=== PATIENT | male | born 1970 | race Caucasian/White ===

== ENCOUNTER 2020-12-24 08:17 | Outpatient (REF) | payer OTHER, SELFPAY ==
[2020-12-24 11:38] LABS: Estimated Average Glucose 157 mg/dL; Hemoglobin A1c % 7.1 %
== END 2020-12-24 08:18 | disposition home or self-care (01) ==
LOC: HO.MANLDS 08:17
PROVIDERS: PCP Internal Medicine; Visit Provider Internal Medicine
DX: E11.9 Type 2 diabetes mellitus without complications (principal)
CPT/HCPCS: 36415; 83036

== ENCOUNTER 2022-03-18 07:46 | Outpatient (REF) | payer OTHER, SELFPAY ==
[2022-03-18 11:29] LABS: Estimated Average Glucose 214 mg/dL; Hemoglobin A1c % 9.1 %
== END 2022-03-18 07:47 | disposition home or self-care (01) ==
LOC: HO.MANLDS 07:46
PROVIDERS: Visit Provider Internal Medicine
DX: E11.9 Type 2 diabetes mellitus without complications (principal)
CPT/HCPCS: 36415; 83036

== ENCOUNTER 2022-09-01 07:58 | Outpatient (REF) | payer OTHER, SELFPAY ==
[2022-09-01 11:31] LABS: MANUAL DIFF FLAG NO
[2022-09-01 11:58] LABS: Basophils Percent Auto 0.3 % (0-2); Eosinophils Absolute Auto 0.3 X10*3/uL (0.0-0.4); Eosinophils Percent Auto 2.9 % (0-4); Hematocrit 49.6 % (42.0-52.0); Hemoglobin 16.9 g/dl (14.0-18.0); Imm Gran Abs Auto 0.03 X10*3/uL (0.00-0.03); Imm Gran Pct Auto 0.3 % (0.0-0.4); Lymphocytes Absolute Auto 2.4 X10*3/uL (1.2-4.9); Lymphocytes Percent Auto 27.3 % (20-40); Mean Corpuscular HGB Conc 34.1 g/dl (31.0-36.0); Mean Corpuscular Hemoglobin 30.9 pg (27.0-33.0); Mean Corpuscular Volume 90.7 fL (80.0-98.0); Mean Platelet Volume 11.3 fL (9.4-12.4); Monocytes Absolute Auto 0.9 X10*3/uL (0.1-1.2); Monocytes Percent Auto 10.5 % (2-11); Neutrophils Absolute Auto 5.1 x10*3/uL (2.0-8.3); Neutrophils Percent Auto 58.7 % (45-73); Platelet Count 215 X10*3/uL (160-400); Red Blood Count 5.47 X10*6/uL (4.60-5.80); Red Cell Distribution Width 12.2 % (11.0-16.0); White Blood Count 8.7 X10*3/uL (4.8-10.8)
[2022-09-01 12:13] LABS: Estimated Average Glucose 286 mg/dL; Hemoglobin A1c % 11.6 %
[2022-09-01 13:14] LABS: Creatinine Urine 63.03 mg/dL; Microalbum/Creatinine Ratio Ur 174.5 ug/mg cr
[2022-09-01 15:09] LABS: Alanine Aminotransferase 48 U/L (0-40); Albumin Level 4.2 g/dL (3.5-5.0); Alkaline Phosphatase 88 U/L (39-117); Anion Gap 14 (12-20); Aspartate Amino Transferase 33 U/L (5-37); Bilirubin Total 0.5 mg/dL (0.0-1.0); Blood Urea Nitrogen 11 mg/dL (9-16); Carbon Dioxide 26 mmol/L (22-29); Chloride 104 mmol/L (96-108); Cholesterol 185 mg/dL; Estimated Glomerular Filt Rate > 60; Glucose Fasting 312 mg/dL (60-99); HDL Cholesterol 40 mg/dL; LDL Cholesterol Calculated 93 mg/dl; Potassium 4.3 mmol/L (3.3-5.1); Sodium 140 mmol/L (135-145); Total Protein 7.1 g/dL (6.5-8.0); Triglycerides 261 mg/dL
[2022-09-01 15:19] LABS: Prostate Specific Antigen 0.58 ng/mL (<0.05-4.0)
== END 2022-09-01 07:59 | disposition home or self-care (01) ==
LOC: HO.MANLDS 07:58
PROVIDERS: Visit Provider Internal Medicine
DX: Z12.5 Encounter for screening for malignant neoplasm of prostate (principal); E78.00 Pure hypercholesterolemia, unspecified; E11.65 Type 2 diabetes mellitus with hyperglycemia
CPT/HCPCS: 36415; 80053; 80061; 82043; 83036; 84153; 85025

== ENCOUNTER 2023-01-01 10:09 | Outpatient (REF) | payer OTHER, SELFPAY ==
[2023-01-01 14:04] LABS: Estimated Average Glucose 240 mg/dL
[2023-01-01 14:07] LABS: Alanine Aminotransferase 46 U/L (0-40); Alkaline Phosphatase 75 U/L (39-117); Anion Gap 18 (12-20); Aspartate Amino Transferase 36 U/L (5-37); Bilirubin Total 0.5 mg/dL (0.0-1.0); Blood Urea Nitrogen 11 mg/dL (9-16); Calcium 9.2 mg/dL (8.4-10.2); Carbon Dioxide 21 mmol/L (22-29); Chloride 103 mmol/L (96-108); Cholesterol 160 mg/dL; Estimated Glomerular Filt Rate > 60; Glucose Random 282 mg/dL (60-115); HDL Cholesterol 38 mg/dL; LDL Cholesterol Calculated 81 mg/dl; Potassium 4.1 mmol/L (3.3-5.1); Sodium 138 mmol/L (135-145); Triglycerides 206 mg/dL
[2023-01-01 14:44] LABS: Creatinine Urine 194.35 mg/dL; Microalbum/Creatinine Ratio Ur 86.4 ug/mg cr
== END 2023-01-01 10:10 | disposition home or self-care (01) ==
LOC: HO.MANLDS 10:09
PROVIDERS: Visit Provider Internal Medicine
DX: E11.65 Type 2 diabetes mellitus with hyperglycemia (principal)
CPT/HCPCS: 36415; 80053; 80061; 82043; 83036

== ENCOUNTER 2023-04-19 08:20 | Outpatient (REF) | payer OTHER, SELFPAY ==
[2023-04-19 13:51] LABS: Estimated Average Glucose 200 mg/dL; Hemoglobin A1c % 8.6 % (<6.0)
== END 2023-04-19 08:21 | disposition home or self-care (01) ==
LOC: HO.MANLDS 08:20
PROVIDERS: Visit Provider Internal Medicine
DX: E11.9 Type 2 diabetes mellitus without complications (principal)
CPT/HCPCS: 36415; 83036

== ENCOUNTER 2023-07-05 08:18 | Outpatient (REF) | payer OTHER, SELFPAY ==
[2023-07-05 13:42] LABS: Estimated Average Glucose 143 mg/dL; Hemoglobin A1c % 6.6 % (<6.0)
== END 2023-07-05 08:19 | disposition home or self-care (01) ==
LOC: HO.MANLDS 08:18
PROVIDERS: Visit Provider Internal Medicine
DX: E11.65 Type 2 diabetes mellitus with hyperglycemia (principal)
CPT/HCPCS: 36415; 83036

== ENCOUNTER 2024-12-27 09:49 | Outpatient (REF) | payer OTHER, SELFPAY ==
--- OUTSIDE RECORDS SUMMARY | 2024-12-27 10:26 | XMS_ITS | Encounter Summary ---
Author Organization [facility] Address [address] [place] [address] Phone Care Team Providers Care Senior Solutions Engineer Name Role Phone Anhtony Jeffery DO Primary Care Provider [phone] Encounter Details Date Type Department Care Team (Late st Contact Info) Description 06/09/2017 Ancillary Orders Virtual Department [address] [place] [address] Anthony Jeffery DO [address] [place] [address] [place] [address] [email or web address] Renal colic on right side; Flank pain Social History Tobacco Use Types Packs/Day Years Used Date Smoking Tobacco: Never Assessed Sex and Gender Information Value Date Recorded Sex Assigned at Not on file Legal Sex Male 9:32 PM EDT Gender Identity Not on file Sexual Orientation Not on file documented as of this encounter Plan of Treatment Not on file documented as of this encounter Results * US Kidneys (06/16/2017 8:00 AM EST) Anatomical Region Laterality Modality Abdomen, Kidney Ultrasound 06/16/2017 9:04 AM EST Impressions 06/16/2017 9:05 AM EST Normal study of the kidneys. POS [id number] Narrative 06/16/2017 9:05 AM EST HISTORY: Right flank pain. COMPARISON: None. FINDINGS: Right kidney: The kidney is normal in size and echogenicity. It measures 12.3 cm in the long axis. No evidence of masses, calculi, pelvocaliectasis or significant cortical thinning. Left kidney: The kidney is normal in size and echogenicity. It measures 13.3 cm in the long axis. No evidence of masses, calculi, pelvocaliectasis or significant cortical thinning. Procedure Note John Hill MD - 06/16/2017 HISTORY: Right flank pain. COMPARISON: None. FINDINGS: Right kidney: The kidney is normal in size and echogenicity. It [id number] cm in the long axis. No evidence of masses, calculi,pelvocaliectasis or significant cortical thinning. Left kidney: The kidney is normal in size and echogenicity. Itmeasures 13.3 cm in the long axis. No evidence of masses, calculi,pelvocaliectasis or significant cortical thinning. IMPRESSION: Normal study of the kidneys. POS [id number] us Anthony Jeffery DO [facility] [place] US RENAL Final Result documented in this encounter Visit Diagnoses Diagnosis Renal colic on right side Renal colic Flank pain Abdominal pain, unspecified site Renal colic on right side Renal colic Flank pain Abdominal pain, unspecified site documented in this encounter Care Teams Senior Solutions Engineer Relationship Specialty Start Date End Date Anthony Jeffery DO [email or web address] PCP - General Internal Medicine 06/09/17 documented as of this encounter Additional Source Comments The information contained in this document represents components of the legal health record. It is not the complete legal health record.[facility]
[2024-12-27 13:23] LABS: MANUAL DIFF FLAG NO
[2024-12-27 13:32] LABS: Hematocrit 46.4 % (42.0-52.0); Hemoglobin 15.7 g/dl (14.0-18.0); Imm Gran Abs Auto 0.02 X10*3/uL (0.00-0.03); Imm Gran Pct Auto 0.2 % (0.0-0.4); Lymphocytes Absolute Auto 2.0 X10*3/uL (1.2-4.9); Mean Corpuscular HGB Conc 33.8 g/dl (31.0-36.0); Mean Corpuscular Hemoglobin 30.4 pg (27.0-33.0); Mean Corpuscular Volume 89.7 fL (80.0-98.0); NRBC Abs Auto 0.000 X10*3/uL (0.0-0.012); NRBC Pct Auto 0.0 /100WBC (0.0-0.2); Platelet Count 247 X10*3/uL (160-400); Red Blood Count 5.17 X10*6/uL (4.60-5.80); White Blood Count 8.2 X10*3/uL (4.8-10.8)
[2024-12-27 13:44] LABS: Alanine Aminotransferase 24 U/L (0-40); Albumin Level 4.4 g/dL (3.5-5.0); Alkaline Phosphatase 70 U/L (39-117); Anion Gap 9 (12-20); Aspartate Amino Transferase 25 U/L (5-37); Blood Urea Nitrogen 11 mg/dL (9-16); Calcium 9.0 mg/dL (8.4-10.2); Carbon Dioxide 28 mmol/L (22-29); Chloride 107 mmol/L (96-108); Cholesterol 150 mg/dL (<200); Estimated Glomerular Filt Rate > 60; HDL Cholesterol 38 mg/dL (>40); Hemoglobin A1C 197.3494 umol/L; Potassium 4.4 mmol/L (3.3-5.1); Sodium 140 mmol/L (135-145); Total Hemoglobin (HGBA1C) 4031.6433 umol/L; Total Protein 7.2 g/dL (6.5-8.0); Triglycerides 104 mg/dL (<150)
[2024-12-27 14:07] LABS: Prostate Specific Antigen 0.75 ng/mL (<0.05-4.0)
[2024-12-27 14:25] LABS: Microalbum/Creatinine Ratio Ur 34.8 ug/mg cr (<30)
== END 2024-12-27 09:50 | disposition home or self-care (01) ==
LOC: HO.MANLDS 09:49
PROVIDERS: Visit Provider Internal Medicine
DX: Z12.5 Encounter for screening for malignant neoplasm of prostate (principal); E78.00 Pure hypercholesterolemia, unspecified; E11.9 Type 2 diabetes mellitus without complications
CPT/HCPCS: 36415; 80053; 80061; 82043; 82570; 83036; 84153; 85025